=== PATIENT | female | born 1935 | race Caucasian/White ===

== ENCOUNTER 2017-12-24 08:33 | Emergency (ER) | payer MEDICARE ==
[~2017-12-24] VITALS: Ht 152.4 cm; Wt 89.8 kg
[~2017-12-24 08:33] MED LIST: CARTIA XT180 MG PO; CELEXA20 MG PO; DEXILANT60 MG PO; LEVOTHROID50 MCG PO; LEVOTHYROXINE50 MCG PO; NITROGLYCERIN0.4 MG; ZESTRIL20 MG PO
--- OUTSIDE RECORDS SUMMARY | 2017-12-24 08:35 | XMS REPORT ---
Author Author [facility] Address Unknown Phone Unavailable Care Team Providers [employer] Name Role Phone BRIELLE PANDA Unavailable Unavailable JOANNA BOWIE Unavailable Unavailable Problems This patient has no known problems. Allergies, Adverse Reactions, Alerts This patient has no known allergies or adverse reactions. Medications This patient has no known medications. Results Test Description Test Time Test Comments Text Results Atomic Results Result Comments HAND 3+ VIEWS RIGHT [place] [address] Patient Name: MARIUM SNOW MR #: [id number] : 1935 Age/Sex: 82/F Req #: [id number] Adm Physician: Ordered by: BRIELLE PANDA MD Report #: [id number] Location: [facility] Room/Bed: _ Procedure: [id number] DX/HAND 3+ VIEWS RIGHT Exam Date: Exam Time: REPORT STATUS: Signed PROCEDURE: HAND RIGHT 3 VIEWS AP T LAT COMPARISON: None. INDICATIONS: Contusion of hand FINDINGS: There is marked bony osteopenia. Diffuse age related degenerative changes are present. Interphalangeal joint space narrowing is noted. No fracture or dislocation. Extensive degenerative irregularity at the base of the first metacarpal and distal carpal row. CONCLUSION: No fracture identified. David Rao D.O. Dictated by: David Rao D.O. on 06/22/2017 at 16:15 Electronically approved by: David Rao D.O. on 06/22/2017 at 16:15 Dictated By: DAVID RAO DO 14 Transcribed By: DAVE on 06/22/171614 COPY TO: BRIELLE PANDA MD CHEST SINGLE (PORTABLE) [place] [address] Patient Name: MARIUM SNOW MR #: [id number] : 1935 Age/Sex: 82/F Req #: [id number] Adm Physician: Ordered by: GLADIS WRIGHT NP Report #: [id number] Location: ER Room/Bed: Procedure: [id number] DX/CHEST SINGLE (PORTABLE) Exam Date: 05/27/17 Exam Time: 2005 REPORT STATUS: Signed EXAMINATION: CHEST SINGLE (PORTABLE) INDICATION: COMPARISON: Chest radiograph from 03/23/2009 FINDINGS: AP view TUBES and LINES: None. LUNGS: Low lung volumes. Lungs are clear. There is no evidence of pneumonia or pulmonary edema. PLEURA: No pleural effusion or pneumothorax. HEART AND MEDIASTINUM: The cardiomediastinal silhouette is unremarkable. BONES AND SOFT TISSUES: No acute osseous lesion. Multiple surgical clips in the right axilla with increased soft tissue density alternating with a small lucencies may represent inflammation. Additional surgical clips overlying the gastroesophageal junction on right upper quadrant. UPPER ABDOMEN: No free air under the diaphragm. IMPRESSION: Right axillary surgical clips with increased soft tissue density when compared to prior exam. If there is any palpable abnormality, consider further evaluation with ultrasound. Signed by: Dr. John Connell M.D. on 05/27/2017 8:36 PM Dictated By: JOHN CONNELL MD 35 Transcribed By: DANIA on 05/27/172035 COPY TO: GLADIS WRIGHT [employer] ELBOW LEFT COMPLETE [place] [address] Patient Name: MARIUM SNOW MR #: [id number] : 1935 Age/Sex: 82/F Req #: [id number] Adm Physician: Ordered by: BRIELLE PANDA MD Report #: [id number] Location: [facility] Room/Bed: _ Procedure: [id number] DX/ELBOW LEFT COMPLETE Exam Date: 05/27/17 Exam Time: 1645 REPORT STATUS: Signed PROCEDURE: X- RAY LEFT ELBOW, COMPLETE COMPARISON: None. INDICATIONS: ARM SWELLING PAIN FINDINGS: Mild osteopenia. No acute displaced fracture or dislocation. Joint spaces are relatively well preserved. No lytic or blastic lesions. Soft tissues are grossly unremarkable. CONCLUSION: No acute abnormalities. Rachel Beckman M.D. Dictated by: Rachel Beckman M.D. on 05/27/2017 at 18:11 Electronically approved by : Rachel Beckman M.D. on 05/27/2017 at 18:11 Dictated By: RACHEL BECKMAN MD 10 Transcribed By: DAVE on 05/27/171810 COPY TO: BRIELLE PANDA MD FOREARM LEFT 2 VIEW [place] [address] Patient Name: MARIUM SNOW MR #: [id number] : 1935 Age/Sex: 82/F Req #: [id number] [facility] Physician: Ordered by: BRIELLE PANDA MD Report #: [id number] Location: [facility] Room/Bed: _ Procedure: [id number] DX/FOREARM LEFT 2 VIEW Exam Date: 05/27/17 Exam Time: 1645 REPORT STATUS: Signed PROCEDURE: X- RAY LEFT FOREARM, TWO VIEWS COMPARISON: None. INDICATIONS: SWELLING AND PAIN FINDINGS: Mild osteopenia. No acute displaced fracture or dislocation. No lytic or blastic lesions. Subchondral sclerosis and joint space narrowing in the first finger carpal metacarpal joint, likely due to osteoarthritis. Other joint spaces are relatively well- preserved. Soft tissues are grossly unremarkable.. CONCLUSION: No acute abnormalities. Rachel Beckman M.D. Dictated by: Rachel Beckman M.D. on 05/27/2017 at 18:12 Electronically approved by: Rachel Beckman M.D. on 05/27/2017 at 18:12 Dictated By: RACHEL BECKMAN MD 11 Transcribed By: DAVE on 05/27/171811 COPY TO: BRIELLE PANDA MD
[2017-12-24] MEDS ORDERED: ONDANSETRON HCL INJ 2 MG/ML VIAL IV STA (09:03)
[2017-12-24 09:46] LABS: BASOPHILS % 0.3 % (0.0-1.0); EOSINOPHILS % 0.5 % (0.0-6.0); HEMATOCRIT 36.5 % (34.2-44.1); HEMOGLOBIN 12.1 g/dL (12.0-16.0); LYMPHOCYTES # (AUTO) 0.7 (1.0-3.2); LYMPHOCYTES % 7.9 % (18.0-39.1); MEAN CORPUSCULAR HEMOGLOBIN 29.2 pg (28-32); MEAN CORPUSCULAR HGB CONC 33.2 g/dL (31-35); MONOCYTES # (AUTO) 1.4 (0.2-0.8); MONOCYTES % 15.2 % (4.4-11.3); NEUTROPHILS # (AUTO) 6.7 (2.1-6.9); NEUTROPHILS % 75.6 % (38.7-80.0); PLATELET COUNT 184 x10e3/uL (140-360); RED BLOOD COUNT 4.15 x10e6/uL (3.6-5.1); RED CELL DISTRIBUTION WIDTH 13.1 % (11.7-14.4)
[2017-12-24 09:52] LABS: CLARITY,URINE CLOUDY (CLEAR); COLOR,URINE YELLOW (YELLOW); LEUKOCYTE ESTERASE ,URINE TRACE (NEGATIVE)
[2017-12-24 09:53] LABS: BILIRUBIN,URINE 1+ (NEGATIVE); KETONES,URINE TRACE (NEGATIVE); NITRITE,URINE NEGATIVE (NEGATIVE); PROTEIN,URINE DIPSTICK 1+ (NEGATIVE); URINE UROBILINOGEN 1 mg/dL (0.2 - 1)
[2017-12-24] MEDS ORDERED: TRAMADOL/APAP PO (10:04)
[2017-12-24] MEDS ORDERED: PROCHLORPERAZIN10 MG PO (10:04)
[2017-12-24 10:06] LABS: ALBUMIN/GLOBULIN RATIO 0.8 (0.8-2.0); ANION GAP 12.1 mmol/L (8-16); CALCIUM 9.3 mg/dL (8.4-10.2); CREATININE, SERUM 1.11 mg/dL (0.57-1.11); POTASSIUM 4.1 mmol/L (3.5-5.1)
[2017-12-24 10:11] LABS: BACTERIA,URINE MODERATE /HPF; EPITHELIAL CELLS,URINE MODERATE /LPF; RBC,URINE 0-5 /HPF (0-5)
[2017-12-24] MEDS ORDERED: KETOROLAC TROMETHAMINE 30 MG/ML VIAL IV STA (10:30)
[2017-12-24] MEDS ORDERED: KETOROLAC TROMETHAMINE 30 MG/ML VIAL IV SCH (10:45)
--- NOTE | 2017-12-24 11:05 | Diagnostic Imaging Report ---
PROCEDURE: CT ABDOMEN AND PELVIS WITHOUT CONTRAST TECHNIQUE: The abdomen and pelvis were scanned utilizing a multidetector helical scanner from the diaphragm to the lesser trochanter. No oral or IV contrast was administered as per physician request. Coronal and sagittal multiplanar reformations were obtained. COMPARISON: None. INDICATIONS: RIGHT FLANK PAIN, STONE PROTOCOL FINDINGS: ABSENCE OF INTRAVENOUS CONTRAST DECREASES SENSITIVITY FOR DETECTION OF FOCAL LESIONS AND VASCULAR PATHOLOGY. LOWER THORAX: Normal. HEPATOBILIARY: No focal hepatic lesions. No biliary ductal dilatation. Cholecystectomy. SPLEEN: No splenomegaly. PANCREAS: No focal masses or ductal dilatation. ADRENALS: No adrenal nodules. KIDNEYS/URETERS: 1.5 mm calculus is present in the interpolar region of the right kidney, series 3 image 86. Simple cyst is present in the interpolar region of the right kidney. No hydronephrosis, obstructing calculi, or solid mass lesions. PELVIC ORGANS/BLADDER: Unremarkable. PERITONEUM / RETROPERITONEUM: No free air or fluid. LYMPH NODES: No lymphadenopathy. VESSELS: Atherosclerotic calcifications. GI TRACT: No distention or wall thickening. Postoperative changes of the epigastric region. Moderate amount of retained feces limits intraluminal evaluation of the colon. No appendix is visualized. BONES AND SOFT TISSUES: Unremarkable. Right mastectomy. IMPRESSION: Nonobstructing right nephrolithiasis. No acute abnormality of the abdomen and pelvis. Dictated by: Ashu Hanna M.D. on 12/24/2017 at 11:05 Electronically approved by: Ashu Hanna M.D. on 12/24/2017 at 11:05
== END 2017-12-24 12:15 | disposition home or self-care (01) ==
LOC: ER 08:33
DX: R10.31 Right lower quadrant pain (principal); R11.2 Nausea with vomiting, unspecified; N30.90 Cystitis, unspecified without hematuria; Z85.3 Personal history of malignant neoplasm of breast; Z86.718 Personal history of other venous thrombosis and embolism
CPT/HCPCS: 36415; 74176; 80053; 81001; 85025; 93005; 99284; J1885; J2405

== ENCOUNTER → 2019-07-19 | Outpatient (CLI) | payer MEDICARE ==
[~2019-07-19] MED LIST changes: +PROCHLORPERAZIN10 MG PO; +TRAMADOL/APAP PO
--- NOTE | 2019-07-19 13:35 | Diagnostic Imaging Report ---
EXAM: CT Abdomen and Pelvis WITHOUT intravenous contrast INDICATION: Abdominal pain COMPARISON: None. TECHNIQUE: Abdomen and pelvis were scanned utilizing a multidetector helical scanner from the lung base to the pubic symphysis without administration of IV contrast. Coronal and sagittal reformations were obtained. IV CONTRAST: None ORAL CONTRAST: Gastrografin COMPLICATIONS: None RADIATION DOSE: Total DLP: 481.3 mGy*cm Dose modulation, iterative reconstruction, and/or weight based adjustment of the mA/kV was utilized to reduce the radiation dose to as low as reasonably achievable. FINDINGS: LOWER THORAX: Predominantly peripheral increased reticular opacities, compatible with component of interstitial lung disease. No focal lung base consolidation. Scattered atherosclerotic coronary artery calcifications. HEPATOBILIARY: No focal liver lesion. Status post cholecystectomy. SPLEEN: No splenomegaly. PANCREAS: No focal masses or ductal dilatation. ADRENALS: 11 mm left adrenal nodule. No right adrenal nodule. KIDNEYS/URETERS: No hydronephrosis or renal calculi. Exophytic right upper pole renal cyst measures up to 5.3 cm. PELVIC ORGANS/BLADDER: Unremarkable. PERITONEUM / RETROPERITONEUM: No free air or fluid. LYMPH NODES: No lymphadenopathy. VESSELS: Diffuse atherosclerotic calcifications of the nonaneurysmal abdominal aorta and major branches. GI TRACT: Diverticulosis without CT evidence of diverticulitis. No abnormal bowel wall thickening. No bowel obstruction. BONES AND SOFT TISSUES: No acute fracture or dislocation. Mild diffuse osteopenia. Degenerative changes of the visualized spine. Grade 1 anterolisthesis at L4-5. IMPRESSION: No acute findings in the abdomen or pelvis. 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 No further imaging follow-up is required. Diverticulosis without CT evidence of diverticulitis. Diffuse atherosclerotic arterial calcifications including of the coronary arteries. Signed by: Laith Briggs MD on 07/19/2019 1:32 PM
== END ==
LOC: CT 09:15
PROVIDERS: ATTEND Family Medicine
DX: R10.32 Left lower quadrant pain (principal)
CPT/HCPCS: 74176